=== PATIENT | female | born 1955 ===

== ENCOUNTER 2025-08-06 07:00 | Emergency (ER) | payer OTHER, SELFPAY ==
--- NOTE | ~2025-08-06 | CT_ITS ---
CLINICAL HISTORY: fell off loading dock, landed on back CT chest without contrast Comparison: None Findings: Normal heart size. No pericardial effusion. Calcific coronary artery disease: Mild. No bulky mediastinal lymphadenopathy. No evidence of mediastinal hematoma or pneumomediastinum. Subsegmental dependent atelectasis. No airspace disease. No pneumothorax or pleural effusions, plaques or calcifications. Central airways are patent. No bronchiectasis. No thyroid nodules. No chest wall masses. No axillary adenopathy. No hepatosplenomegaly. 3 cm indeterminate lesion either within the right lobe of the liver or right adrenal gland partially imaged. Heavy stool burden. Mild loss of vertebral body height T4 vertebra possible compression deformity of indeterminate age. Slight step-off anterior manubrium suspect nondisplaced fracture without associated hematoma. Correlate with palpation. Impression: 1. Mild loss of vertebral body height T4 vertebral body possible mild compression deformity of indeterminate age. MRI would be helpful. Remaining vertebral body heights are maintained. Slight cortical step-off anterior manubrium reflecting a nondisplaced cortical fracture without associated hematoma correlate with palpation. 2. Subsegmental dependent atelectasis. No airspace disease. No pneumothorax or pleural effusions. 3. Ancillary findings as described. This document has been electronically signed by: Mor Stack MD on 08/06/2025 10:57:31
--- NOTE | ~2025-08-06 | CT_ITS ---
CLINICAL HISTORY: trauma, fell off loading dock CT cervical spine without intravenous contrast Comparison: None Findings: Craniocervical junction: No occipital condylar fractures. No evidence of atlantooccipital dissociation. The anterior and posterior arch and lateral masses of C1 are intact. Odontoid and atlanto-dental interval intact. The pars interarticularis of C2 is intact. There is normal vertebral body heights with no evidence of compression fracture. There is normal cervical alignment. No locked or perched facets. No spinous process fractures. Lordotic curvature is preserved. The retropharyngeal soft tissues are not widened. Segmental analysis as below (MR is more accurate in the evaluation of disc herniation and central canal pathology): C2-C3: Uncovertebral body spurs and degenerative facet hypertrophy C3-C4: Uncovertebral body spurs and degenerative facet hypertrophy more so on the right C4-C5: Uncovertebral body spurs and degenerative facet hypertrophy bilaterally C5-C6: Uncovertebral body spurs C6-C7: Uncovertebral body spurs C7-T1: Uncovertebral body spurs The bones are without evidence of lytic or blastic lesion. Biapical interstitial thickening with pleural-parenchymal scarring right apex. Impression: 1. Negative CT cervical spine for acute process. This document has been electronically signed by: Mor Stack MD on 08/06/2025 10:49:06
--- NOTE | ~2025-08-06 | CT_ITS ---
CLINICAL HISTORY: trauma, fell off loading dock CT of the head without intravenous contrast Comparison: None Findings: The ventricles and sulci are prominent, consistent with generalized cerebral parenchymal volume loss. The ventricles are symmetric and the basilar cisterns are intact. Mild periventricular, deep and subcortical white matter hypodensities are nonspecific but statistically reflect the sequela of chronic small vessel ischemic change. No intracranial hemorrhage, extra-axial fluid collection, midline shift or mass-effect is evident. No evidence of acute large vessel or territorial ischemia. Brainstem and cerebellum unremarkable. Vascular calcifications indicate intracranial atherosclerosis. The imaged portion of the paranasal sinuses demonstrated mild ethmoid and maxillary sinusitis. No mastoid effusions are demonstrated. The orbital contents are unremarkable. Calvarium is intact. Impression: 1. No CT evidence of acute intracranial abnormality. 2. Cerebral volume loss, intracranial atherosclerotic disease and mild sequela of chronic small vessel ischemic disease. This document has been electronically signed by: Mor Stack MD on 08/06/2025 10:37:06
[2025-08-06 07:12] VITALS: BP 112/84; PULSE 88; O2SAT 98
[2025-08-06 07:29] VITALS: BP 134/77; PULSE 76; RESP 16; TEMP 36.8; O2SAT 93; BMI 36.5
[2025-08-06 07:39] VITALS: O2SAT 97
--- OUTSIDE RECORDS SUMMARY | 2025-08-06 07:50 | XMS_ITS | Clinical Summary ---
Author Organization [employer] Address [address] [place] [address] Care Team Providers Care Sign Builder Name Role Phone Unavailable Primary Care Provider Unavailabl e Allergies No known active allergies Medications KlonoPIN 0.5 MG tablet Take 0.5 mg by mouth 3 times daily. Active lamoTRIgine (LaMICtal) 100 MG tablet Take 1 tablet by mouth 3 times daily. Active morphine CR (MS Contin) 30 MG 12 hr tablet TAKE 1 TABLET BY MOUTH EVERY 8 HOURS NEEDED FOR SEVERE PAIN FOR 28 DAYS Active oxyCODONE (Roxicodone) 5 MG immediate release tablet TAKE 2 TABLETS BY MOUTH TWICE A DAY FOR 28 DAYS NEEDED FOR SEVERE PAIN 01/14/2024 Active citalopram (CeleXA) 40 MG tablet Take 40 mg by mouth Once per day. Active Active Problems No known active problems Social History Tobacco Use Types Packs/Day Years Used Date Smoking Tobacco: Never Assessed Comments Unknown Sex and Gender Information Value Date Recorded Sex Assigned at Female 09/11/2022 3:02 PM EST Legal Sex Female 5:36 PM EDT Gender Identity Female 09/11/2022 3:02 PM EST Sexual Orientation Choose not to disclose 2022 3:02 PM EST Plan of Treatment Health Maintenance Due Date Last Done Comments CT Colonography 1955 Colonoscopy 1955 Colorectal Cancer Screening 1955 Depression Screening 1955 FIT DNA/Cologuard 1955 FIT 1955 FOBT 1955 Lipid Panel 1955 SDOH Screening 1955 Sigmoidoscopy 1955 Alcohol/Substance Use Screening 1967 Tobacco Screening 1967 Hepatitis C Screening 1973 Mammogram 1995 RSV Patients and Patients Aged 60 years or older (1 - Risk 50-74 years 1-dose series) 2005 Zoster Vaccines (1 of 2) 2005 Dental Oral Exam 05/31/2022 11/28/2021, 06/2016, 06/22/2009, Additional history exists Dental Prophylaxis 09/15/2022 03/14/2022, 0 03/20/2016, 08/29/2009 Dental X-Ray: Bitewings 11/29/2022 11/29/19 22, 03/20/2016, 06/22/2009, Additional history exists Dental X-Ray: Full Mouth 11/29/2024 022, 03/20/2016, 06/22/2009, Additional history exists DTaP/Tdap/Td Vaccines (2 - Td or Tdap) 12/18/2024 12/18/2014 COVID-19 Vaccine (3 - season) 2025 03/15/2021, 02/08/2021 Influenza Vaccine (#1) 2025 0, 06/15/2017, 06/18/2015, Additional history exists Pneumococcal Vaccine: 50+ Years Completed 06/29/2023, 06/15/2017 HIB Vaccines Aged Out No longer eligi ble based on patient's age to complete this topic HPV Vaccines Aged Out No longer eligi ble based on patient's age to complete this topic Hepatitis A Vaccines Aged Out No long er eligible based on patient's age to complete this topic Hepatitis B Vaccines Aged Out No long er eligible based on patient's age to complete this topic IPV Vaccines Aged Out No longer eligi ble based on patient's age to complete this topic Meningococcal B Vaccine Aged Out No l onger eligible based on patient's age to complete this topic Meningococcal Vaccine Aged Out No gricelda beverly eligible based on patient's age to complete this topic RSV under 20 months Aged Out No longe r eligible based on patient's age to complete this topic Rotavirus Vaccines Aged Out No longer eligible based on patient's age to complete this topic Procedures Procedure Name Priority Date/Time Associated Diagnosis Comments PROPHYLAXIS - ADULT Routine 03/14/2022 1 2:00 AM EDT INTRAORAL - COMPLETE SERIES OF RADIOGRAPHIC IMAGES Routine 11/28/2021 12:00 AM EDT PERIODIC ORAL EVALUATION - ESTABLISHED PATIENT Routine 11/28/2021 12:00 AM EDT from Last 3 Months or Most Recently Relevant to Health Maintenance Insurance [facility]
--- NOTE | 2025-08-06 07:58 | ED_ITS ---
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 She was on a loading dock when she accidentally slipped on some cardboard and fell about 3 ft onto the ground below. The ground was covered with snow. She landed primarily on her upper back. She also hit her head. She has pain in her neck and in her upper back. She has pain with breathing. No abdominal pain. No lower back pain. No numbness, tingling, weakness, burning in her extremities. Related Data Previous Rx's ?Medication ?Instructions ?Recorded ketorolac 10 mg tablet 10 mg PO Q6H PRN pain #10 ta bs 08/06/25 Allergies Allergy/AdvReac Type Severity Reaction Status Date / Time No Known Drug Allergies Allergy none Verified 08/06/25 07:32 Review of Systems 2 Review of Systems: Yes all other systems are reviewed and are negative Physical Exam ED Vital Signs: Vital Signs - 24 hr 08/06/25 16:30 Temperature 98 F Pulse Rate 80 Respiratory Rate 18 Blood Pressure 125/61 Pulse Oximetry 94 Oxygen Delivery Method Room Air BMI result Body Mass Index 36.5 Const Other: The patient is a chronically ill-appearing 70-year-old who is in his cervical collar. She is awake and alert. She has a normal mental status. HENMT Other: No signs of trauma to the head or the face. No raccoon eyes. No paredes sign. Eyes Other: Pupils are round equal, conjunctivae are clear, extraocular movements intact Neck Other: The patient has posterior C-spine tenderness. Chest Other: There has posterior chest wall tenderness. No crepitus or subcutaneous emphysema. Resp Effort & Inspection: normal respiratory effort Auscultation: clear to auscultation bilaterally Cardio Rate: regular rate Rhythm: regular rhythm Heart sounds: S1 normal heart sound present and S2 normal heart sound present GI Other: Abdomen is soft and nontender Back/Spine/Pelvis Other: The patient has tenderness diffusely to the upper back. No lower back tenderness. Skin Other: Skin is intact Neuro Other: The patient is awake and alert with a normal mental status. Cranial nerves are grossly intact. He seems to have intact strength and sensation in her extremities. Extrem Other: No deformities to the extremities. She can move the arms in the legs fairly well. No signs of injury to the extremities. Medications Administered Discontinued Medications Generic Name Dose Route Start Last Admin Trade Name Betsy PRN Reason Stop Dose Admin Acetaminophen 1,000 mg in 100 mls @ 400 mls/hr 08/06/25 11:06 08/06/25 11:16 Ofirmev IV 08/06/25 11:20 Not Given ONCE ONE Sodium Chloride 1,000 mls @ 999 mls/hr 08/06/25 12:15 08/06/25 13:12 Ns IV 08/06/25 13:15 Infused .Q1H1M NATASHA Infusion Ketorolac Tromethamine 15 mg 08/06/25 12:03 08/06/25 12:48 Ketorolac Tromethamine 15 Mg/Ml Vial IVPUSH 08/06/25 12:04 15 mg ONCE ONE Administration Morphine Sulfate 4 mg 08/06/25 08:20 08/06/25 08:29 Morphine Sulfate 4 Mg/Ml Cartridge IVPUSH 08/06/25 08:21 4 mg ONCE ONE Administration Protocol Morphine Sulfate 4 mg 08/06/25 11:02 08/06/25 11:15 Morphine Sulfate 4 Mg/Ml Cartridge IVPUSH 08/06/25 11:03 4 mg ONCE ONE Administration Protocol Oxycodone HCl 10 mg 08/06/25 12:04 08/06/25 12:12 Oxycodone Hcl Immed Release 5 Mg Tablet PO 08/06/25 12:05 10 mg ONCE ONE Administration Medical Decision Making Medical Decision Making [facility] Narrative: The patient is a 70-year-old woman who works delivering [employer]. She slipped this morning on a loading dock and apparently fell off the loading dock onto the ground below, approximately 3.5 ft. onto blacktop that has been covered with snow. She believes that she landed primarily on her upper back. She struck her head but had no loss of consciousness. She has some neck pain but she has no numbness, tingling, weakness, burning in her extremities. She is complaining of pain in her upper back and also in her anterior chest. She says that at the time of impact she felt pain in both her upper back and her anterior chest as well. Both pains were worse with movement. On exam the patient was awake and alert with a normal mental status. She had some posterior C-spine tenderness. She had anterior chest wall tenderness and tenderness across the upper back. She had no lumbar spinous tenderness. No abdominal tenderness. No apparent injuries to the extremities. She was able to move all of her extremities and her extremities were well-perfused. She has a head CT that was negative for acute injury. Cervical spine CT shows a lot of degenerative changes but no acute findings. A CT of the chest without contrast showed ?mild loss of vertebral body height T4 vertebral body possible mild compression deformity of indeterminate age. ? It was not my impression that the patient had focal tenderness in this area. She seemed to have a lot of generalized tenderness of the upper back generally rather than specific T4 vertebral tenderness. The CT of the chest also showed a step-off of the anterior manubrium possibly consistent with a nondisplaced cortical fracture without associated hematoma. On her physical exam however I do not feel that she had significant focal tenderness in the manubrium. She has a lot of generalized anterior chest wall tenderness across both upper ribs but not significant specific manubrial tenderness. The patient is on chronic opioids. She takes oxycodone at home. She was given IV morphine for pain. She was also given oral oxycodone and also a dose of IV ketorolac. The patient was observed. Ultimately she felt well enough from the point of view of pain management that she felt she could be discharged. She has oxycodone at home. She requested a prescription for ketorolac. She has normal renal function. I think a short prescription of ketorolac is not unreasonable. She should follow up promptly with her PCP. She was advised that she would likely be more sore before she feels better. Lab Data 08/06/25 11:10 08/06/25 11:10 Labs: Lab Results 08/06/25 Range/Units 11:10 WBC 14.7 H (4.8-10.8) X10*3/uL RBC 4.38 (4.20-5.50) X10*6/uL Hgb 13.6 (12.0-16.0) g/dl Hct 41.7 (37.0-47.0) % MCV 95.2 (80.0-98.0) fL MCH 31.1 (27.0-33.0) pg MCHC 32.6 (31.0-35.0) g/dl RDW 13.3 (11.0-16.0) % Plt Count 253 (160-400) X10*3/uL MPV 9.2 L (9.4-12.3) fL Immature Gran % (Auto) 0.5 H (0.0-0.4) % Neut % (Auto) 83.2 H (45-73) % Lymph % (Auto) 9.9 L (20-40) % Hayes % (Auto) 5.7 (2-11) % Eos % (Auto) 0.3 (0-4) % Baso % (Auto) 0.4 (0-2) % Lymph # (Auto) 1.5 (1.2-4.9) X10*3/uL Hayes # (Auto) 0.8 (0.1-1.2) X10*3/uL Eos # (Auto) 0.0 (0.0-0.4) X10*3/uL Baso # (Auto) 0.1 (0.0-0.2) X10*3/uL Abs Immat Gran (auto) 0.07 H (0.00-0.03) X10*3/uL Absolute Neuts (auto) 12.2 H (2.0-8.3) x10*3/uL Absolute Nucleated RBC 0.000 (0.0-0.012) X10*3/uL Nucleated RBC % (auto) 0.0 (0.0-0.2) /100WBC Sodium 142 (135-145) mmol/L Potassium 4.8 (3.3-5.1) mmol/L Chloride 102 (96-108) mmol/L Carbon Dioxide 30 H (22-29) mmol/L Anion Gap 15 (12-20) BUN 10 (9-16) mg/dL Creatinine 0.74 (0.5-1.4) mg/dL Estim Creat Clear Calc 79.6 Estimated GFR > 60 Random Glucose 109 (60-115) mg/dL Calcium 9.5 (8.4-10.2) mg/dL Total Bilirubin 0.4 (0.0-1.0) mg/dL Direct Bilirubin 0.2 (0.0-0.5) mg/dL AST 28 (5-31) U/L ALT 23 (0-31) U/L Alkaline Phosphatase 121 H (39-117) U/L Troponin I High Sens 3.9 (<3.5-17.0) ng/L Total Protein 7.0 (6.5-8.0) g/dL Albumin 4.3 (3.5-5.0) g/dL Discharge Plan Discharge Clinical Impression: Chest wall contusion, Contusion of upper back, Fall Patient Disposition: Home, Self-Care Additional Instructions: The CAT scan does not show any definite fractures or other internal injuries. Nevertheless you will be very sore for the next several days. You may be more sore before you are less sore. I have sent a prescription for the medication ketorolac that you may take every 6 hours as needed for pain. You may use this in addition to your oxycodone. Please plan on resting and taking it easy for the next several days. Call your regular doctor's office in the morning for a follow up appointment soon. If you feel significantly worse please return to the emergency room. Prescriptions: New ketorolac 10 mg tablet 10 mg PO Q6H PRN (Reason: pain) Qty: 10 0RF Rx Instructions: maximum total duration of 5 days from all oral, intranasal, or parenteral formulations Referrals: Tarah Parada NP [Primary Care Provider, Internal Medicine] Interventions: ED Discharge Assessment Last Done: 08/06/25 16:30 Discharge Date/Time: 08/06/25 16:31 Print Language: Irish
--- NOTE | 2025-08-06 08:09 | ECG_ITS ---
Test Reason : THORACIC PAIN Blood Pressure : */* mmHG Vent. Rate : 73 BPM Atrial Rate : 73 BPM P-R Int : 162 ms QRS Dur : 94 ms QT Int : 392 ms P-R-T Axes : 42 -2 29 degrees QTcB Int : 431 ms Normal sinus rhythm Normal ECG No previous ECGs available Referred By: Aiden Perkins Electronically Signed By: ABDIRASHID SANTIAGO MD
--- NOTE | 2025-08-06 09:10 | PC.NURSE ---
Pt to CT scan.
[2025-08-06 11:17] LABS: Hematocrit 41.7 % (37.0-47.0); Hemoglobin 13.6 g/dl (12.0-16.0); Imm Gran Abs Auto 0.07 X10*3/uL (0.00-0.03); Imm Gran Pct Auto 0.5 % (0.0-0.4); Lymphocytes Absolute Auto 1.5 X10*3/uL (1.2-4.9); MANUAL DIFF FLAG NO; Mean Corpuscular HGB Conc 32.6 g/dl (31.0-35.0); Mean Corpuscular Hemoglobin 31.1 pg (27.0-33.0); Mean Corpuscular Volume 95.2 fL (80.0-98.0); NRBC Abs Auto 0.000 X10*3/uL (0.0-0.012); NRBC Pct Auto 0.0 /100WBC (0.0-0.2); Platelet Count 253 X10*3/uL (160-400); Red Blood Count 4.38 X10*6/uL (4.20-5.50); White Blood Count 14.7 X10*3/uL (4.8-10.8)
[2025-08-06 11:50] LABS: Alanine Aminotransferase 23 U/L (0-31); Albumin Level 4.3 g/dL (3.5-5.0); Alkaline Phosphatase 121 U/L (39-117); Anion Gap 15 (12-20); Aspartate Amino Transferase 28 U/L (5-31); Blood Urea Nitrogen 10 mg/dL (9-16); Calcium 9.5 mg/dL (8.4-10.2); Carbon Dioxide 30 mmol/L (22-29); Chloride 102 mmol/L (96-108); Creatinine Clr Calc Pharmacy 79.6; Estimated Glomerular Filt Rate > 60; Potassium 4.8 mmol/L (3.3-5.1); Sodium 142 mmol/L (135-145); Total Protein 7.0 g/dL (6.5-8.0)
[2025-08-06 11:55] LABS: Troponin-I High Sensitivity 3.9 ng/L (<3.5-17.0)
[2025-08-06 12:00] VITALS: BP 137/80; PULSE 73; RESP 18; TEMP 36.7; O2SAT 94
[2025-08-06] MEDS: oxyCODONE HCl Immed Release 5 MG TABLET 10 MG PO (12:12)
--- NOTE | 2025-08-06 12:21 | PC.NURSE ---
Pt repositioned for comfort. given oxycodone per order. pt declined toradol at this time ibuprofen upsets my stomach. maybe later
[2025-08-06 15:30] VITALS: BP 125/61; PULSE 80; RESP 18; O2SAT 94
[2025-08-06 16:30] VITALS: BP 125/61; PULSE 80; RESP 18; TEMP 36.6; O2SAT 94
== END 2025-08-06 16:31 | disposition home or self-care (01) ==
PROVIDERS: Emergency Provider Emergency Medicine; PCP Nurse Practitioner Family
DX: S20.219A Contusion of unspecified front wall of thorax, initial encounter (principal); S20.229A Contusion of unspecified back wall of thorax, initial encounter; S09.90XA Unspecified injury of head, initial encounter; W17.89XA Other fall from one level to another, initial encounter; Y93.L9 Activity, other outdoor activity; Y92.62 Dock or shipyard as the place of occurrence of the external cause; Y99.0 Civilian activity done for income or pay; M54.6 Pain in thoracic spine; M54.2 Cervicalgia
CPT/HCPCS: 36415; 70450; 71250; 72125; 80048; 80076; 84484; 85025; 93005; 96361; 96374; 96375; 96376; 99284; 99285; J1885; J2270

== ENCOUNTER → 2025-08-06 08:04 | Outpatient (BNV) | payer OTHER, SELFPAY | PROVIDERS: Emergency Provider Emergency Medicine; PCP Nurse Practitioner Family; Visit Provider Radiology Diagnostic Radiology | DX: R18.8 Other ascites (principal); Z04.3 Encounter for examination and observation following other accident; I67.2 Cerebral atherosclerosis; I67.82 Cerebral ischemia | CPT/HCPCS: 70450; 71250; 72125 ==

== ENCOUNTER → 2025-08-06 08:09 | Outpatient (BNV) | payer OTHER, SELFPAY | PROVIDERS: Emergency Provider Emergency Medicine; PCP Nurse Practitioner Family; Visit Provider Internal Medicine Cardiovascular Disease | DX: M54.6 Pain in thoracic spine (principal) | CPT/HCPCS: 93010 ==